=== PATIENT | male | born 1975 | race Two or more races ===

== ENCOUNTER 2019-02-03 15:34 | Emergency (ER) | payer OTHER ==
[~2019-02-03] VITALS: Ht 177.8 cm; Wt 99.8 kg
[2019-02-03] MEDS ORDERED: KETOROLAC TROMETH 30 MG/ML 1ML VIAL IV ONE (15:45)
[2019-02-03 16:10] LABS: Basophils # (auto) 0.1 uL; Basophils % (auto) 0.8 % (0.0-2.0); Eosinophils # (auto) 0.1 uL; Hematocrit 42.6 % (41.0-53.0); Hemoglobin 14.5 g/dL (13.5-17.5); Lymphocytes # (auto) 1.5 uL; Lymphocytes % (auto) 17.4 % (10.0-50.0); Mean Corpuscular Hemoglobin 31.2 pg (28.0-32.0); Mean Corpuscular Volume 91.8 fL (80.0-100.0); Monocytes # (auto) 0.6 uL; Monocytes % (auto) 6.7 % (0.0-12.0); Neutrophils # (auto) 6.4 uL; Neutrophils % (auto) 74.1 % (37.0-80.0); Nucleated Red Blood Cells % 0.1 %; Platelet Count (auto) 288 10^3/uL (140-450); Red Blood Cells 4.64 10^6/uL (4.5-5.90); White Blood Cell 8.6 10^3/uL (4.4-10.8)
[2019-02-03 16:25] LABS: Anion Gap 9 (5-15); Blood Urea Nitrogen 18 mg/dL (7-18); Calcium 8.2 mg/dL (8.5-10.1); Carbon Dioxide 26 mmol/L (21-32); Chloride 108 mmol/L (98-107); GFR African American 119 mL/min; GFR Non-African American 98 mL/min; Glucose 109 mg/dL (74-106); Sodium 143 mmol/L (136-145)
[2019-02-03 16:30] LABS: Alanine Aminotransferase 41 U/L (16-61); Alkaline Phosphatase 66 U/L (45-117); Aspartate Aminotransferase 23 U/L (15-37); Bilirubin, Total 0.2 mg/dL (0.2-1.0); Total Protein 7.2 g/dL (6.4-8.2)
[2019-02-03 17:00] VITALS: BP 145/93
== END 2019-02-03 17:51 | disposition home or self-care (01) ==
LOC: EDBD 15:34 → ER 15:39
DX: S22.32XA Fracture of one rib, left side, initial encounter for closed fracture (principal); S40.012A Contusion of left shoulder, initial encounter; S16.1XXA Strain of muscle, fascia and tendon at neck level, initial encounter; S80.01XA Contusion of right knee, initial encounter; R55 Syncope and collapse; V43.52XA Car driver injured in collision with other type car in traffic accident, initial encounter; Y93.89 Activity, other specified; Y99.8 Other external cause status; Y92.410 Unspecified street and highway as the place of occurrence of the external cause
CPT/HCPCS: 36415; 70450; 71045; 72125; 73030; 73560; 80053; 84484; 85025; 93005; 94761; 96374; 99284; J1885

== ENCOUNTER 2019-02-08 11:05 | Emergency (ER) | payer OTHER ==
[~2019-02-08] VITALS: Ht 177.8 cm; Wt 113.4 kg
[2019-02-08 11:27] VITALS: BP 120/66
== END 2019-02-08 12:44 | disposition home or self-care (01) ==
LOC: ER 11:05
DX: Z04.1 Encounter for examination and observation following transport accident (principal)

== ENCOUNTER 2020-05-02 15:42 | Emergency (ER) | payer OTHER ==
[~2020-05-02] VITALS: Ht 177.8 cm; Wt 113.4 kg
[2020-05-02 16:09] VITALS: BP 128/74
[2020-05-02] MEDS ORDERED: ACETAMINOPHEN 500 MG TAB PO ONE (17:30)
== END 2020-05-02 17:58 | disposition home or self-care (01) ==
LOC: ER 15:42
DX: S09.90XA Unspecified injury of head, initial encounter (principal); S00.03XA Contusion of scalp, initial encounter; W20.8XXA Other cause of strike by thrown, projected or falling object, initial encounter; Y93.89 Activity, other specified; Y92.89 Other specified places as the place of occurrence of the external cause; Y99.8 Other external cause status
CPT/HCPCS: 70450